=== PATIENT | male | born 1985 | race Two or more races ===

== ENCOUNTER 2024-07-10 20:50 | Emergency (ER) | payer MEDICAID, SELFPAY ==
[2024-07-10 20:51] VITALS: BMI 33.9
[2024-07-10 21:02] VITALS: BP 145/74; PULSE 93; RESP 16; TEMP 39.3; O2SAT 97
--- NOTE | 2024-07-10 21:30 | XR_ITS ---
Examination: PA chest single view Technique: Upright PA chest single view Exam date and time: July 10 2024 at 2134 hrs. Indications: Coughing 2 weeks. Findings: Normal heart size. Lungs are clear. The osseous structures are intact Impression: No active disease
[2024-07-10 21:33] VITALS: TEMP 39.3
[2024-07-10] MEDS: ACETAMINOPHEN 500 MG TABLET 1000 MG PO (21:33)
--- NOTE | 2024-07-10 21:37 | EDNOTE_ITS ---
Upper Respiratory Inf. RME/HPI General Chief Complaint: Flu Like Symptoms Stated Complaint: FLU LIKE SYMPTOMS Time Seen by Provider: 07/10/24 21:29 Arrival date/time: 07/10/24 20:50 39M with no significant PMH presents to ED with 2 weeks of cough, fevers/chills, and some SOB. Limitations: no limitations Related Data Previous Rx's ?Medication ?Instructions ?Recorded IBU 800 mg tablet (ibuprofen) 800 mg PO Q6H PRN pain # 30 tabs 12/07/19 hydrocodone 5 mg-acetaminophen 325 1 tab PO Q6H #7 tab s 12/07/19 mg tablet ([place]) azithromycin 250 mg tablet See Rx Instructions PO .COM PLEX #6 07/10/24 tabs Allergies Allergy/AdvReac Type Severity Reaction Status Date / Time No Known Allergies Allergy Verified 07/10/24 20:53 Review of Systems Review of Systems Systems Reviewed: All systems reviewed, normal except as documented Constitutional Constitutional: Reports system reviewed and no additional complaints, except as documented, Reports as per HPI, Reports chills, Reports fever(s) and Denies headache(s) ENT Ears, Nose, Mouth, and Throat: Denies disequilibrium and Denies headache(s) Cardiovascular Cardiovascular: Reports system reviewed and no additional complaints, except as documented, Denies chest pain and Reports dyspnea Respiratory Respiratory: Reports system reviewed and no additional complaints, except as documented, Reports as per HPI, Reports cough and Reports dyspnea Gastrointestinal Gastrointestinal: Reports system reviewed and no additional complaints, except as documented, Denies abdominal pain, Denies nausea and Denies vomiting Neurologic Neurologic: Reports system reviewed and no additional complaints, except as documented, Denies confusion, Denies disequilibrium and Denies headache(s) Psychiatric Psychiatric: Denies confusion Past Medical History Past Medical History CARDIAC: Negative Congestive Heart Failure RESPIRATORY: Negative Chronic Obstructive Pulmonary Disease (COPD) GENITOURINARY: Negative Renal Disease ENDOCRINE: Negative Diabetes Mellitus Type 1 or Diabetes Mellitus Type 2 Social History SMOKING STATUS: Former smoker ED Exam General Limitations: Present no limitations General appearance: Present alert and in no apparent distress Head Head exam: Present atraumatic Eye Eye exam: Present normal appearance, PERRL and EOMI ENT ENT exam: Present normal exam, normal oropharynx and mucous membranes moist Neck Neck exam: Present normal inspection, full ROM and trachea midline Chest Chest inspection: Present normal inspection and symmetric chest wall rise Respiratory Respiratory exam: Present normal lung sounds bilaterally Cardiovascular Cardiovascular exam: Present regular rate, normal rhythm and normal heart sounds Abdominal Exam Abdominal exam: Present soft and normal bowel sounds Extremities Exam Extremities exam: Present normal inspection and full ROM Back Exam Back exam: Present normal inspection and full ROM Neurological Exam Neurological exam: Present alert, oriented X3 and CN II-XII intact Psychiatric Psychiatric exam: Present normal affect and normal mood Skin Skin exam: Present warm, dry, intact and normal color Course Quality Measures none Orders Category Date Time Status Bedside Influenza A&B Antigen Test NOW Care 07/10/24 20:56 Completed XR chest 1V portable Stat Exams 07/10/24 21:30 Completed Acetaminophen Tab [Tylenol ES Tab] Med 07/10/24 21:30 Discontinued 1,000 mg PO X1 ONE Vital Signs Vital signs: Vital Signs Temperature 102.7 F H 07/10/24 21:02 Pulse Rate 93 07/10/24 21:02 Respiratory Rate 16 07/10/24 21:02 Blood Pressure 145/74 H 07/10/24 21:02 Pulse Oximetry (%) 97 07/10/24 21:02 Oxygen Delivery Method Room Air 07/10/24 21:02 O2 at 97% on RA and WNLs Upper Respiratory Infection MDM Narrative MDM Narrative:: 39M with no significant PMH presents to ED with 2 weeks of cough, fevers/chills, and some SOB. Physical exam reveals clear ENT and lungs. Normal WOB. No sinus tenderness. Patient is febrile, but does not appear toxic. Swabs neg. CXR normal. Will cover atypical PNA given duration of cough. Patient data External records reviewed:: [facility] previous records Clinical information provided by:: patient Social determinants that could affect healthcare access:: none Patient has the following chronic illnesses:: none How is presenting disease/condition affected by chronic disease/condition?: no chronic disease Evaluation data The following diagnostics were reviewed and interpreted by me:: lab results and radiology exam(s) Lab and/or radiology exams considered but not ordered:: ordered Interpretation Summary: above Medications / Prescriptions Medications or Prescriptions considered but not ordered:: ordered Medication administrations:: Medication Administration History Discontinued Medications Acetaminophen (Acetaminophen 500 Mg Tablet) 1,000 mg PO X1 ONE Stop: 07/10/24 21:31 Last Admin: 07/10/24 21:33 Dose: 1,000 mg Documented By: CB above Consultations Consultation(s) initiated? (list below): No Diagnosis Upper Respiratory Differential Diagnosis: upper respiratory infection, croup, otitis media, sinusitis, viral infection, bronchitis, influenza, pharyngitis and other (CAP, PE, ACS) Most likely diagnosis given after review of the tests above:: URI Admission Indicated Admission indicated?: not indicated Admission Request Was there a request for admission?: No Disposition Plan Disposition Plan: Discharge Discharge Attestation Discharge Attestation: The patient and all family members were given an opportunity to ask questions and understood the discharge instructions. Discharge instructions specifically effects, indications for sooner follow up or return to the emergency department, and the expected course of current diagnosis. Patient condition: Stable Discharge Plan Plan Patient Disposition: HOME (Self Care) Disposition Comment: Stable Prescriptions/Referrals Prescriptions/Med Rec: New azithromycin 250 mg tablet See Rx Instructions .ROUTE .COMPLEX Qty: 6 0RF Rx Instructions: For 250 mg dose pack: take 500 mg today (day 1), then 250 mg for 4 days (days 2-5) No Action ibuprofen [IBU] 800 mg tablet 800 mg PO Q6H PRN (Reason: pain) Qty: 30 0RF hydrocodone-acetaminophen [[place]] 5-325 mg tablet 1 tab PO Q6H MDD 2 tab Qty: 7 0RF Referrals: No Primary/Family,Physician [Primary Care Provider] - In 1 week Problem List Clinical Impression: URI (upper respiratory infection) Patient/Caregiver Discharge Instructions Additional Instructions: Please follow-up with PCP within 24-48 hours and return immediately if symptoms worsen. Ibuprofen/Tylenol can be used simultaneously for greater fever/pain control. Benadryl is good for cough, congestion, and sleep. Print Language: Icelandic Stand Alone Forms: Patient Portal Info Letter PA/FAMILY LAW MEDIATOR Supervising Physician SADI/FAMILY LAW MEDIATOR Supervising Physician: Dr. Durbin
[2024-07-10 22:40] VITALS: BP 138/75; PULSE 91; RESP 16; TEMP 37.7; O2SAT 98
== END 2024-07-10 22:48 | disposition home or self-care (01) ==
PROVIDERS: Emergency Provider Emergency Medicine
DX: J06.9 Acute upper respiratory infection, unspecified (principal)
CPT/HCPCS: 71045; 87400; 99283; A9270